=== PATIENT | male | born 1980 | race African-American/Black ===

== ENCOUNTER → 2017-12-07 | Outpatient (CLI) | payer OTHER ==
--- NOTE | 2017-12-08 07:36 | US ---
EXAMINATION TYPE: US thyroid st tissue head/neck DATE OF EXAM: 12/07/2017 COMPARISON: NONE CLINICAL HISTORY: R22.1 SWELLING,MASS AND LUMP. Patient states his neck feels swollen. Bilateral neck scanned. No masses or lumps identified. No prominent lymph nodes. No suspicious sono graphic abnormality. No focal fluid collection. No cystic or solid mass. Visualized thyroid gland carmen ears homogeneous. IMPRESSION: No sonographic finding to correspond to the patient's palpable abnormality. No adenopath y.
== END ==
LOC: RADUSWWP 16:11
PROVIDERS: ATTEND Internal Medicine
DX: R22.1 Localized swelling, mass and lump, neck (principal)
CPT/HCPCS: 76536

== ENCOUNTER → 2023-03-05 | Outpatient (CLI) | payer BC ==
[2023-03-06 02:55] LABS: Bilirubin, Conjugated 0.28 mg/dL (0.20-0.40); Bilirubin,Unconjugated 0.82 mg/dL (0.20-1.00); Total Bilirubin 1.1 mg/dL (0.3-1.2)
== END | disposition home or self-care (01) ==
LOC: LABWHC1 11:55
PROVIDERS: ATTEND Internal Medicine Gastroenterology
DX: E80.7 Disorder of bilirubin metabolism, unspecified (principal); K57.32 Diverticulitis of large intestine without perforation or abscess without bleeding; R74.8 Abnormal levels of other serum enzymes
CPT/HCPCS: 36415; 82248; 83516

== ENCOUNTER → 2023-03-10 | Outpatient (CLI) | payer BC | END | disposition home or self-care (01) | LOC: LABWHC1 10:31 | PROVIDERS: ATTEND Internal Medicine Gastroenterology | DX: R76.0 Raised antibody titer (principal) | CPT/HCPCS: 36415; 82784 ==